=== PATIENT | male | born 1960 | race Caucasian/White ===

== ENCOUNTER 2016-07-02 14:09 | Day surgery (SDC) | payer OTHER ==
[~2016-07-02] VITALS: Ht 165.1 cm; Wt 67.7 kg
[2016-07-02 15:42] VITALS: Ht 165.1 cm; Wt 67.7 kg
[2016-07-02] MEDS ORDERED: HTN MED PO (15:49)
[2016-07-02 16:01] VITALS: BP 147/93; PULSE 74; RESP 19
[2016-07-02] MEDS ORDERED: MIDAZOLAM 1 MG/ML 2 ML INJ ONE ×2 (16:40)
[2016-07-02] MEDS ORDERED: FENTAnyl 50 MCG/ML VIAL ONE (16:40)
[2016-07-02 16:54] VITALS: BP 145/91; PULSE 76; RESP 16
--- NOTE | 2016-07-02 17:22 | GILP ---
DATE OF PROCEDURE: 07/02/2016 NAME OF PROCEDURE: Colonoscopy. SURGEON: Magaly Ramon MD PREOPERATIVE DIAGNOSES: 1. Rectal bleeding. 2. Screening colonoscopy. POSTOPERATIVE DIAGNOSES: 1. Colonoscopy all the way to the cecum. 2. Internal and external hemorrhoids. 3. No colon neoplasm was identified. INDICATION FOR THE PROCEDURE: Mr. Joavnny King is a 56-year-old male patient who had rectal bleedi ng. The patient never had screening colonoscopy. The procedure and possible complications were well explained to the patient, he understood and conse nted to the procedure. DESCRIPTION OF PROCEDURE: Under the influence of fentanyl and Versed, the colonoscope was carefully introduced in the rectum and under direct vision, it was advanced all the way to the cecum. FINDINGS: The patient had internal and external hemorrhoids. No colitis or neoplasm was identified . He tolerated the procedure very well and there was no complication from the procedure. At the end o f the procedure, he was awake with stable vital signs and he was discharged home to the care of his family. IMPRESSION: 1. Colonoscopy all the way to the cecum. 2. Internal and external hemorrhoids. 3. No colon neoplasm was identified. PLAN: 1. Anusol-HC 2.5% cream b.i.d. 2. If the bleeding continues, may consider hemorrhoidectomy. 3. Next screening colonoscopy in 10 years. Dictated By: MAGALY NOGUEIRA/SUYAPA Conf#: [id number] DID#: [id number] CC: MAGALY RAMON MD;*EndCC*
== END 2016-07-02 17:16 | disposition home or self-care (01) ==
LOC: GIL 14:09
PROVIDERS: ATTEND Internal Medicine Gastroenterology
DX: Z12.11 Encounter for screening for malignant neoplasm of colon (principal); K64.4 Residual hemorrhoidal skin tags; K64.8 Other hemorrhoids; I10 Essential (primary) hypertension
CPT/HCPCS: 45378; J2250; J3010